=== PATIENT | male | born 1965 | race Two or more races ===

== ENCOUNTER 2016-09-21 03:54 | Emergency (ER) | payer OTHER ==
[~2016-09-21] VITALS: Ht 170.2 cm; Wt 113.4 kg
[~2016-09-21 03:54] MED LIST: LOSA100T21 PO; OMEP20CA74 PO
[2016-09-21 04:33] LABS: Basophils # (auto) 0 uL; CONDITION Y; Eosinophils # (auto) 0 uL; Hematocrit 49.2 % (41.0-53.0); Hemoglobin 16.9 g/dL (13.5-17.5); Lymphocytes % (auto) 7.9 % (10.0-50.0); Mean Corpuscular Hemoglobin 30.4 pg (28.0-32.0); Mean Corpuscular Hgb Conc. 34.2 g/dL (32.0-36.0); Mean Corpuscular Volume 88.7 fL (80.0-100.0); Mean Platelet Volume 7.9 fL (7.4-10.4); Monocytes # (auto) 0.8 uL; Monocytes % (auto) 6.4 % (0.0-12.0); Neutrophils # (auto) 10.9 uL; Neutrophils % (auto) 85.7 % (37.0-80.0); Platelet Count (auto) 197 10^3/uL (140-450); Red Cell Distribution Width 14.4 % (11.6-16.0); White Blood Cell 12.7 10^3/uL (4.4-10.8)
[2016-09-21 04:55] LABS: Albumin 3.4 g/dL (3.4-5.0); BUN/Creatinine Ratio 12.7; Bilirubin, Total 2.2 mg/dL (0.2-1.0); Calcium 8.7 mg/dL (8.5-10.1); Potassium 3.5 mmol/L (3.5-5.1); Total Protein 8.4 g/dL (6.4-8.2)
[2016-09-21 05:29] LABS: Urine Bilirubin Negative (Negative); Urine Color Yellow (Yellow); Urine Glucose Normal (Normal); Urine Ketone Negative (Negative); Urine Nitrite Negative (Negative); Urine RBC <1 /hpf (0 - 3)
[2016-09-21 05:30] LABS: Urine Blood 1+ /uL (Negative)
[2016-09-21] MEDS ORDERED: cefTRIAXone 1GM/50ML D5W 50 ML IV ONE (08:15)
[2016-09-21] MEDS ORDERED: CLINDAMYCIN 900MG IV 50 ML IV ONE (08:15)
[2016-09-21 09:45] VITALS: BP 145/88
== END 2016-09-21 09:57 | disposition home or self-care (01) ==
LOC: ER 03:54
DX: L03.115 Cellulitis of right lower limb (principal); I10 Essential (primary) hypertension; Z79.899 Other long term (current) drug therapy
CPT/HCPCS: 36415; 80053; 81001; 85025; 87040; 93971; 96365; 96367; 99285; J0696; J3490